=== PATIENT | male | born 1955 | race Caucasian/White ===

== ENCOUNTER 2022-01-16 18:53 | Emergency (ER) | payer MEDICARE, SELFPAY ==
--- NOTE | ~2022-01-16 | XR_ITS ---
EXAMINATION: XR chest 2V DATE: 01/16/2022 19:13 INDICATION: Cough and congestion. TECHNIQUE: Frontal and lateral views of the chest were obtained on 4 radiographs. COMPARISON: Chest 2 views 02/08/2009 FINDINGS: There is mild atelectasis at the lung bases. There is mild scarring at the lung apices. No pleural effusion or pneumothorax. The heart size is normal. IMPRESSION: 1. Mild scarring at the lung apices and mild atelectasis at the lung bases. Reviewed, dictated and finalized at location A.
[2022-01-16 19:02] VITALS: BP 141/99; PULSE 102; RESP 16; TEMP 37; O2SAT 97
--- NOTE | 2022-01-16 19:10 | ED.URI ---
HPI - URI/Sore Throat General Chief Complaint: Upper Respiratory Infection Stated Complaint: HEAD COLD/CHEST CONGESTION Time Seen by Provider: 01/16/22 19:15 Source: patient and RN notes reviewed Mode of arrival: ambulatory Limitations: no limitations History of Present Illness HPI Narrative: 66-year-old male presented for complaint of cough for 2 days. He endorses a history of pneumonia and states it feels the same. He denies associated shortness of breath, wheezing, chest pain, nausea, vomiting, fevers or chills. He has been taking Mucinex with minimal relief in symptoms. He is twice boosted for COVID, vaccinated for flu. He denies sick contacts. MD elicited complaint: cough Related Data Home Medications Medication Instructions Recorded Confirmed apixaban [Eliquis] 5 mg PO BID 01/16/22 01/16/22 diltiazem HCl 180 mg PO DAILY 01/16/22 01/16/22 hydrochlorothiazide 25 mg PO DAILY 01/16/22 01/16/22 methenamine hippurate 1 g PO BID 01/16/22 01/16/22 metoprolol succinate 100 mg PO BID 01/16/22 01/16/22 rosuvastatin 20 mg PO DAILY 01/16/22 01/16/22 tadalafil 20 mg PO DAILY 01/16/22 01/16/22 Allergies Allergy/AdvReac Type Severity Reaction Status Date / Time Penicillins Allergy Unknown Rash Verified 01/16/22 19:20 tamsulosin Allergy Unknown Unknown Verified 01/16/22 19:20 Review of Systems Review of Systems: CONSTITUTIONAL: Endorses malaise, chills, sweats, fever EYES: Denies visual changes, redness, or discharge ENT: Reports rhinorrhea, congestion, sinus pain, otalgia, sore throat CARDIOVASCULAR: Denies chest pain, palpitations, edema RESPIRATORY: Reports cough, post nasal drainage. Denies dyspnea GASTROINTESTINAL: Denies abdominal pain, nausea, vomiting, diarrhea SKIN: Denies rash or itching MUSCULOSKELETAL: Endorses myalgia NEUROLOGIC: Denies headache [facility] Family History Family History (Updated 04/26/14 @ 07:13 by DOCTOR UNKNOWN) Mother Hypertension Family history of Parkinson's disease Father Hypertension Malignant neoplasm of prostate Social History Social History Smoking status: Never smoker Alcohol intake: current Exam Narrative: GENERAL: Ill-appearing, nontoxic no acute distress. HEAD: Normocephalic EYES: PERRLA, conjunctivae clear ENT: Mucous membranes moist. TM pearly faye with dull light reflex bilaterally; no tragal tenderness. Oropharynx erythematous without lesions or exudate, no drooling, no hoarseness, no trismus, uvula midline. No tripod positioning, muffled voice, soft palate or pharyngeal wall bulging NECK: Supple. No lymphadenopathy CHEST: Clear to auscultation, breath sounds equal. No wheezing, rhonchi, rales, or stridor. No respiratory distress, speaks in full sentences. HEART: Regular rate and rhythm. No murmur heard. SKIN: Warm, dry, no rash. NEURO: Alert and oriented x3. PSYCH: Normal mood and affect Course Course Emergency Course: Patient is aware of diagnosis, understands and agrees to treatment plan. Anticipatory guidance given. Patient agrees to follow-up as directed and is aware of reasons to seek care at the emergency department. Portions of this record may have been created with voice recognition software Level of Care: Express Care Visit Vital Signs Vital signs: Vital Signs Temperature 98.6 F 01/16/22 19:02 Pulse Rate 102 H 01/16/22 19:02 Respiratory Rate 16 01/16/22 19:02 Blood Pressure 141/99 H 01/16/22 19:02 Pulse Oximetry 97 01/16/22 19:02 Temperature 98.6 F 01/16/22 19:02 Pulse Rate 102 H 01/16/22 19:02 Respiratory Rate 16 01/16/22 19:02 Blood Pressure 141/99 H 01/16/22 19:02 Pulse Oximetry 97 01/16/22 19:02 reviewed MDM - URI/Sore Throat MDM Narrative Medical decision making narrative: CXR reviewed with pt. He is traveling back to [place] in 2 days and will f/u with pcp. Differential Diagnosis Differential diagnosis: Likely upper respiratory infection, sinusitis and viral infection Imaging Data Radiolog
== END 2022-01-16 19:40 | disposition home or self-care (01) ==
PROVIDERS: Emergency Provider Nurse Practitioner Family
DX: J30.9 Allergic rhinitis, unspecified (principal)
CPT/HCPCS: 71046; 99213; G0463